=== PATIENT | female | born 1985 | race Caucasian/White ===

== ENCOUNTER 2016-03-02 16:13 | Outpatient (CLI) | payer BC ==
--- NOTE | 2016-03-02 19:38 | RAD ---
CERVICAL SPINE FIVE VIEWS HISTORY: Neck pain with right arm paresthesias. FINDINGS: There is reversal of the normal lordotic curvature of the cervical spine on the lateral view. Verte bral body heights are maintained. No acute fracture or dislocation are apparent. Cervicothoracic ju nction is intact. IMPRESSION: No acute osseous abnormalities of the cervical spine are demonstrated. POS: MARGARETH
== END 2016-03-02 16:14 | disposition home or self-care (01) ==
LOC: MADRAD 16:13
PROVIDERS: ATTEND Physician Assistant
DX: R20.2 Paresthesia of skin (principal)
CPT/HCPCS: 72050

== ENCOUNTER 2016-09-06 12:32 | Emergency (ER) | payer BC ==
[2016-09-06 13:06] LABS: Bilirubin Negative (Negative); Blood, Urine Negative (Negative); Clarity Clear (Clear); Glucose, Urine (Dipstick) Negative (Negative); Leukocyte Negative (Negative); Nitrite Negative (Negative); Protein, Urine (Dipstick) Negative (Neg-Trace); Urobilinogen 0.2 mg/dL (0.2-1.0)
[2016-09-06 13:19] LABS: Amphetamine Not Detected (NotDetected); Barbiturates Screen Not Detected (NotDetected); Benzodiazepine Screen Not Detected (NotDetected); Cocaine Metabolite Screen Not Detected (NotDetected); Medtox Control Line Valid? VALID (VALID); Methadone Not Detected (NotDetected); Methamphetamine Not Detected (NotDetected); Opiate Screen Not Detected (NotDetected); Oxycodone Screen Not Detected (NotDetected); Phencyclidine (PCP) Not Detected (NotDetected); THC/Cannabinoid Screen Not Detected (NotDetected); Tricyclic Screen Not Detected (NotDetected)
[2016-09-06 13:35] LABS: #Basophils 0.1 thou/uL (0.0-0.2); #Eosinphils 0.8 thou/uL (0.0-0.7); #Lymphocytes 1.5 thou/uL (1.20-3.40); #Monocytes 0.4 thou/uL (0.11-0.59); #Neutrophils 3.8 thou/uL (1.40-6.50); %Basophils 1.8 % (0.0-1.0); %Eosinophils 11.6 % (0.0-10.0); %Lymphocytes 23.2 % (21.0-51.0); %Monocytes 5.5 % (0.0-10.0); %Neutrophils 57.9 % (42.0-75.0); Hemoglobin 15.1 g/dL (12.0-16.0); Mean Corpuscular HGB CONC 35.2 g/dL (32.0-36.0); Mean Corpuscular Hemoglobin 31.5 pg (27.0-31.0); Mean Corpuscular Volume 89.6 fl (81.0-99.0); Mean Platelet Volume 8.8 fL (7.4-10.4); Platelet Count 192 thou/uL (130-400); RBC Distribution Width 10.8 % (11.5-14.5); White Blood Cell (WBC) Count 6.5 thou/uL (4.8-10.8)
[2016-09-06 13:50] LABS: Anion Gap 14 mmol/L (10-20); BUN (Urea Nitrogen) 10 mg/dL (7.0-18.7); Calc. Creatinine Clearance 0 mL/min (70-130); Carbon Dioxide 25 mmol/L (22-29); Chloride 105 mmol/L (98-107); Estimated GFR-MDRD 89; Potassium 3.7 mmol/L (3.5-5.1); Sodium 140 mmol/L (136-145)
[2016-09-06 13:51] LABS: ALT (SGPT) 15 U/L (8-55); AST (SGOT) 15 U/L (5-34); Albumin 4.1 g/dL (3.5-5.0); Alkaline Phosphatase 58 U/L (40-150); Bilirubin, Total 0.6 mg/dL (0.2-1.2); Calcium 9.2 mg/dL (7.8-10.44); Globulin 3.1 g/dL (2.4-3.5); Glucose 85 mg/dL (70-105); Protein, Total 7.2 g/dL (6.0-8.3)
[2016-09-06 13:54] LABS: CKMB 0.6 ng/mL (0-6.6); Troponin I Less than 0.010 ng/mL (< 0.028)
--- NOTE | 2016-09-06 14:05 | RAD ---
PORTABLE AP CHEST: Date: 09-06-16 History: Chest pain. FINDINGS: Cardiac silhouette and pulmonary vasculature are within normal limits. Lungs are clear. Osseous stru ctures are intact. IMPRESSION: No acute cardiopulmonary process. POS: MARGARETHH
== END 2016-09-06 14:25 | disposition home or self-care (01) ==
LOC: MADERS 12:32
DX: R07.89 Other chest pain (principal)
CPT/HCPCS: 36415; 71010; 80053; 80306; 81003; 82553; 84484; 85025; 85379; 93005